=== PATIENT | female | born 1940 | race American Indian/Alaskan Native ===

== ENCOUNTER 2019-08-10 16:04 | Outpatient (CLI) | payer MEDICARE ==
--- NOTE | 2019-08-10 22:49 | XRay Report ---
CHEST 2 VIEWS INDICATION / CLINICAL INFORMATION: COUGH, SOB. COMPARISON: None available. FINDINGS: SUPPORT DEVICES: None. HEART / MEDIASTINUM: No significant abnormality. LUNGS / PLEURA: No significant pulmonary or pleural abnormality. No pneumothorax. ADDITIONAL FINDINGS: No significant additional findings. IMPRESSION: Diffuse osteopenia with mild compression of one of the lower thoracic vertebral bodies. Degenerative changes seen in the shoulders. No acute pulmonary or pleural abnormality. Signer Name: Garett Sylvester MD FACR Signed: 08/10/2019 10:45 PM Workstation Name: [id number]
== END 2019-08-10 16:05 | disposition home or self-care (01) ==
LOC: XRAY 16:04
PROVIDERS: ATTEND Internal Medicine Hematology & Oncology
DX: R06.02 Shortness of breath (principal); R05 Cough; C90.00 Multiple myeloma not having achieved remission; M19.011 Primary osteoarthritis, right shoulder; D64.9 Anemia, unspecified; R68.89 Other general symptoms and signs; N18.9 Chronic kidney disease, unspecified
CPT/HCPCS: 71046